=== PATIENT | female | born 1980 | race Hispanic/Latino ===

== ENCOUNTER → 2016-11-29 | Outpatient (CLI) | payer OTHER ==
[~2016-11-29] MED LIST: ISOVUE-370 76% 100ML VIAL (Q9967) As Ordered ONE
--- NOTE | 2016-11-29 14:23 | REP ---
HYSTEROSALPINGOGRAM: HISTORY: Infertility. 1 minute 36 seconds of fluoroscopy is utilized. FINDINGS: Endometrial cavity was cannulated and contrast injected by the referring indirect fire infantryman. The endometrial and endocervical cavity are unremarkable. Isthmic segments of the fallopian tubes are filled bilaterally. The right ampullary segment was filled, and peritoneal spillage was documented on the right. The left fallopian tube was less than completely filled, and peritoneal spillage could not be documented from the left fallopian tube. IMPRESSION: We were not able to document spillage from the left fallopian tube. Patency is observed and documented on the right. No endometrial abnormality is appreciated. Signed by Gilberto De Jesus MD 11/29/2016 03:20 P
== END ==
LOC: M RADPRO 12:02
PROVIDERS: ATTEND Obstetrics & Gynecology
DX: N97.9 Female infertility, unspecified (principal)
CPT/HCPCS: 58340; 74740; Q9967

== ENCOUNTER → 2017-02-01 | Outpatient (CLI) | payer OTHER ==
--- NOTE | 2017-02-01 12:24 | REP ---
MR BRAIN WITH AND WITHOUT CONTRAST: HISTORY: Hyperprolactinemia. Contrast: ProHance 7 mL. There are no areas of abnormal signal intensity in the brain. There is no intraparenchymal hemorrhage, infarct, mass or midline shift. There is no abnormal enhancement. The ventricular system is normal in appearance. There is no extracerebral collection. The sella turcica is partially empty. The pituitary gland measures 4.6 mm in height. There is homogenous enhancement with contrast. The infundibulum is midline. The cavernous sinuses, optic chiasm and hypothalamus are normal in appearance. Mucosal thickening is present in the ethmoid and maxillary sinuses. IMPRESSION: There is no intracranial lesion. Signed by Ray Henderson MD 02/01/2017 12:24 P
== END ==
LOC: M RAD 10:55
PROVIDERS: ATTEND Obstetrics & Gynecology
DX: E22.1 Hyperprolactinemia (principal)
CPT/HCPCS: 70553; A9576

== ENCOUNTER → 2017-04-22 | Outpatient (CLI) | payer OTHER ==
--- NOTE | 2017-04-22 08:13 | REP ---
Pelvic ultrasound, endovaginal imaging for ovarian follicle evaluation: Right ovary: There are three follicles greater than 10 mm diameter, the largest maximally measuring 28 mm. Additionally there are multiple follicles in the eight to 9 mm range. The right ovary is mildly enlarged measuring 5.8-3.6 x 3.5 cm. The left ovary There are three follicles greater than 10 mm, the largest maximally measuring 14.2 mm. In addition there are multiple follicles in the 890 mm range. The left ovary is normal size measuring 3.5 x 2.5 x 1.4 cm. The uterus is anteverted and normal size measuring 7.9 x 3.6 x 4.3 cm. The endometrium is not thickened measuring 8.1 mm. The endometrium has a trilaminar appearance. Signed by Eric Wayne MD 04/22/2017 08:05 A
[2017-04-22 09:25] LABS: LUTEINIZING HORMONE 52.8 mIU/mL; PROGESTERONE 0.6 NG/ML
[2017-04-22 09:26] LABS: ESTRADIOL 1224.7 PG/ML
== END ==
LOC: M RAD 06:27
PROVIDERS: ATTEND Obstetrics & Gynecology Reproductive Endocrinology
DX: Z31.49 Encounter for other procreative investigation and testing (principal)

== ENCOUNTER → 2017-04-25 | Outpatient (CLI) | payer OTHER ==
[2017-04-25 09:43] LABS: PROGESTERONE 1.8 NG/ML
[2017-04-25 10:34] LABS: ESTRADIOL 3366.2 PG/ML
--- NOTE | 2017-04-25 12:12 | REP ---
Clinical: Infertility. Technique: Transvaginal ultrasound examination. Technique: Normal anteverted uterus measures 7.6 x 3.4 x 4.5 cm. The endometrial complex measures 10.3 mm thickness with trace endocervical fluid noted. No pelvic fluid or adnexal mass lesion identified. Right ovary measures 6.5 x 4.6 x 5.7 cm and includes five follicles between 12 and 24 mm diameter along with approximately nine sub centimeter follicles. Left ovary measures 5.0 x 3.5 x 3.4 cm and includes 10 follicles between eight and 18 mm diameter along with approximately seven sub centimeter follicles. Impression: Bilateral follicles as noted above. Essentially normal appearance to the uterus. Signed by Lance Forrester MD 04/25/2017 07:52 A
== END ==
LOC: M RAD 06:26
PROVIDERS: ATTEND Obstetrics & Gynecology Reproductive Endocrinology
DX: Z31.49 Encounter for other procreative investigation and testing (principal)

== ENCOUNTER → 2017-05-05 | Outpatient (CLI) | payer OTHER ==
--- NOTE | 2017-05-05 07:42 | REP ---
Clinical: Infertility. Technique: Transvaginal ultrasound examination. Findings: Normal anteverted uterus measures 7.3 x 3.4 x 4.3 cm. Endometrial complex measures 5 mm thickness. No pelvic fluid or mass lesion. Right ovary measures 5.2 x 4.5 x 5.5 cm approximately 10 follicles between 12 and 21 mm maximal diameter and innumerable sub centimeter follicles. Left ovary measures 3.6 x 3.2 x 4.5 cm with four follicles between 12 and 17 mm and innumerable sub centimeter follicles. Impression: Follicular study as described above. Signed by Lance Forrester MD 05/05/2017 07:33 A
[2017-05-05 08:02] LABS: HCG, SERUM QUANTITATIVE < 1.0 MIU/ML
[2017-05-05 10:03] LABS: ESTRADIOL 45.5 PG/ML; LUTEINIZING HORMONE 0.9 mIU/mL; PROGESTERONE 0.3 NG/ML
== END ==
LOC: M RAD 06:30
PROVIDERS: ATTEND Obstetrics & Gynecology Reproductive Endocrinology
DX: N97.9 Female infertility, unspecified (principal)

== ENCOUNTER → 2017-05-13 | Outpatient (CLI) | payer OTHER ==
--- NOTE | 2017-05-13 09:45 | REP ---
TRANSVAGINAL PELVIC ULTRASOUND, FOLLICLE STUDY: Real-time sonographic evaluation of the pelvis performed utilizing transvaginal technique. The uterus measures 8.6 x 3.3 x 4.4 cm. Endometrial stripe measures 9 mm. There is trace endometrial/endocervical fluid. Right ovary measures 4.8 x 3.6 x 3.7 cm. Five dominant follicles are seen greater than 1 cm in diameter. The largest measures 14 x 15 mm. About six other subcentimeter follicles are seen in the right ovary. Left ovary measures 2.3 x 1.9 x 3.3 cm. The largest follicle is 12 x 8 mm. Multiple other subcentimeter follicles are seen in the left ovary, approximately 24 are counted. Signed by Eric Scott MD 05/13/2017 05:21 P
[2017-05-13 09:53] LABS: ESTRADIOL 577.6 PG/ML; LUTEINIZING HORMONE 3.9 mIU/mL; PROGESTERONE < 0.2 NG/ML
== END ==
LOC: M LAB 07:11 → M RAD 07:11
PROVIDERS: ATTEND Obstetrics & Gynecology Reproductive Endocrinology
DX: E28.9 Ovarian dysfunction, unspecified (principal)

== ENCOUNTER → 2017-05-24 | Outpatient (CLI) | payer OTHER ==
[2017-05-24 10:12] LABS: ESTRADIOL 948.5 PG/ML; PROGESTERONE 34.6 NG/ML
== END ==
LOC: M LAB 07:26
PROVIDERS: ATTEND Obstetrics & Gynecology Reproductive Endocrinology
DX: N97.9 Female infertility, unspecified (principal)

== ENCOUNTER → 2017-05-27 | Outpatient (CLI) | payer OTHER ==
[2017-05-27 08:23] LABS: PROGESTERONE 30.9 NG/ML
== END ==
LOC: M LAB 06:13
PROVIDERS: ATTEND Obstetrics & Gynecology Reproductive Endocrinology
DX: N97.9 Female infertility, unspecified (principal)

== ENCOUNTER → 2017-05-30 | Outpatient (CLI) | payer OTHER ==
[2017-05-30 10:03] LABS: PROGESTERONE 33.4 NG/ML
[2017-05-30 10:06] LABS: ESTRADIOL 951.4 PG/ML
== END ==
LOC: M LAB 06:20
PROVIDERS: ATTEND Obstetrics & Gynecology Reproductive Endocrinology
DX: Z32.01 Encounter for pregnancy test, result positive (principal)

== ENCOUNTER → 2017-07-15 | Outpatient (CLI) | payer OTHER | LOC: M LAB 08:03 | PROVIDERS: ATTEND Obstetrics & Gynecology Reproductive Endocrinology | DX: O02.1 Missed abortion (principal) ==

== ENCOUNTER → 2017-08-18 | Outpatient (CLI) | payer OTHER ==
[2017-08-18 16:17] LABS: ESTRADIOL 64.6 PG/ML; FOLLICLE STIMULATING HORMONE 5.4 mIU/mL; LUTEINIZING HORMONE 9.2 mIU/mL; PROGESTERONE 1.6 NG/ML
--- NOTE | 2017-08-18 16:17 | REP ---
TRANSVAGINAL PELVIC ULTRASOUND FOLLICLE STUDY: Real-time sonographic evaluation of the pelvis performed using transvaginal technique. Uterus measures 7.8 x 3.6 x 4.6 cm. A nabothian cyst is seen in the region of the cervix. There is trace fluid in the cervical canal. Endometrial stripe measures 4 mm. Right ovary measures 4.2 x 2.5 x 3.1 cm. There is a dominant follicle 17 x 18 mm. 10 other subcentimeter follicles are seen. A complex cystic structure in the right ovary measures 1.7 x 1.9 x 1.9 cm. Left ovary measures 4.0 x 2.5 x 2.8 cm. There are two dominant follicles measuring 13 x 8 mm and 14 x 17 mm. Multiple other subcentimeter follicles are seen in the left ovary. Signed by Eric Scott MD 08/18/2017 05:37 P
== END ==
LOC: M LAB 14:40
PROVIDERS: ATTEND Obstetrics & Gynecology Reproductive Endocrinology
DX: N97.9 Female infertility, unspecified (principal)

== ENCOUNTER → 2017-09-12 | Outpatient (CLI) | payer OTHER ==
[2017-09-12 10:08] LABS: PROGESTERONE 31.4 NG/ML
== END ==
LOC: M LAB 08:35
PROVIDERS: ATTEND Obstetrics & Gynecology Reproductive Endocrinology
DX: N97.9 Female infertility, unspecified (principal)

== ENCOUNTER → 2017-09-14 | Outpatient (CLI) | payer OTHER ==
[2017-09-14 09:30] LABS: ESTRADIOL 298.4 PG/ML; PROGESTERONE 28.9 NG/ML
== END ==
LOC: M LAB 08:02
PROVIDERS: ATTEND Obstetrics & Gynecology Reproductive Endocrinology
DX: Z32.01 Encounter for pregnancy test, result positive (principal)

== ENCOUNTER → 2017-09-16 | Outpatient (CLI) | payer OTHER ==
[2017-09-16 09:52] LABS: PROGESTERONE 23.6 NG/ML
== END ==
LOC: M LAB 08:39
PROVIDERS: ATTEND Obstetrics & Gynecology Reproductive Endocrinology
DX: Z32.01 Encounter for pregnancy test, result positive (principal)

== ENCOUNTER → 2017-09-26 | Outpatient (CLI) | payer OTHER ==
[2017-09-26 12:41] LABS: PROGESTERONE 26.5 NG/ML
== END ==
LOC: M LAB 07:00
PROVIDERS: ATTEND Obstetrics & Gynecology Reproductive Endocrinology
DX: O09.00 Supervision of pregnancy with history of infertility, unspecified trimester (principal)

== ENCOUNTER → 2017-09-26 | Outpatient (CLI) | payer OTHER ==
--- NOTE | 2017-09-26 17:52 | REP ---
Obstetric sonography: First trimester study. ultrasound. Status post renal transplant September 01. Findings: Transabdominal and transvaginal scanning are performed. There are two small sac-like structures in the uterine fundal endometrium. Neither of these demonstrates a yolk sac or an observable embryonic pole. By mean sac size diameter is, these would correspond with a 1-glwb-4-day and 2-mwjt-1-day gestational age estimate. No free fluid or extrauterine abnormalities observed. In the absence of pole, viability cannot be directly confirmed. Right ovary dimensions are 2.8 x 1.6 x 2.0 cm left ovary measures 3.0 x 2.0 x 1.5 cm. Uterine dimensions are 8.0 x 4.4 x 5.0 cm. Impression: Two gestational sac like structures are seen in the uterine endometrium, 2-ccls-5-day and 5 weeks 3-day estimates based on mean sac size diameter. No embryonic pole or yolk sac is seen in either. Otherwise unremarkable. Signed by Gilberto De Jesus MD 09/26/2017 08:31 P
== END ==
LOC: M RAD 16:01
PROVIDERS: ATTEND Obstetrics & Gynecology Reproductive Endocrinology
DX: O09.01 Supervision of pregnancy with history of infertility, first trimester (principal)

== ENCOUNTER → 2017-10-03 | Outpatient (CLI) | payer OTHER ==
--- NOTE | 2017-10-03 08:49 | REP ---
FIRST TRIMESTER OB ULTRASOUND WITH ENDOVAGINAL PROBE OB ULTRASOUND: 10/03/2017. Clinical history: First trimester . Two apparent gestational sacs on the previous study. Transabdominal and endovaginal probes show uterus anteverted. It measures 8.3 x 3.4 x 4.8 cm. There are two gestational sacs with sac A 11.5 mm mean sac diameter corresponding to 6 weeks and sac B 11.4 mm mean diameter with the sac at 5 weeks 6 days. Yolk sac is seen on each side. There is no pole at this time. There is a small subchorionic bleed adjacent to sac B and lateral to it at 9.9 x 1.7 x 2.5 mm. Sac A is towards the right, sac B is toward the left side of the uterus on the transverse images. Right ovary 2.5 x 2.2 x 2.1 cm and the left 2.8 x 1.8 x 2 cm. There is no adnexal mass or pelvic free fluid. Impression: 1. Twin OB gestation with sac A on the maternal right, sac B on the maternal left. 6 week size for mean sac diameter, sac A 5 week 6 days size, for sac B with 11.4 mm mean sac diameter. Neither sac has a pole. There is a tiny subchorionic hemorrhage adjacent to sac B at its lateral margin 9.9 x 2.5 x 1.7 mm. This may represent early IUP with pole not yet able to be seen versus missed spontaneous . Clinical, laboratory and ultrasound follow-up likely needed. Signed by Dion Mckeon MD 10/04/2017 05:49 P
[2017-10-03 10:40] LABS: ESTRADIOL 167.5 PG/ML; PROGESTERONE 6.5 NG/ML
== END ==
LOC: M RAD 07:33
PROVIDERS: ATTEND Obstetrics & Gynecology Reproductive Endocrinology
DX: Z36.2 Encounter for other antenatal screening follow-up (principal)

== ENCOUNTER → 2017-10-17 | Outpatient (CLI) | payer OTHER | LOC: M LAB 09:04 | PROVIDERS: ATTEND Obstetrics & Gynecology Reproductive Endocrinology | DX: Z31.41 Encounter for fertility testing (principal) ==

== ENCOUNTER → 2017-10-27 | Outpatient (CLI) | payer OTHER ==
[2017-10-27 09:03] LABS: HCG, SERUM QUANTITATIVE 8 MIU/ML
== END ==
LOC: M LAB 08:13
DX: O02.1 Missed abortion (principal)

== ENCOUNTER → 2017-11-02 | Outpatient (CLI) | payer OTHER ==
[2017-11-02 14:59] LABS: HCG, SERUM QUANTITATIVE 3 MIU/ML
== END ==
LOC: M LAB 13:57
DX: O02.1 Missed abortion (principal)
CPT/HCPCS: 84702

== ENCOUNTER → 2017-11-23 | Outpatient (CLI) | payer OTHER ==
[2017-11-23 08:42] LABS: HCG, SERUM QUANTITATIVE < 1.0 MIU/ML
[2017-11-23 10:47] LABS: PROGESTERONE 0.2 NG/ML
[2017-11-23 10:47] LABS: LUTEINIZING HORMONE 2.1 mIU/mL
[2017-11-23 12:33] LABS: ESTRADIOL 26.7 PG/ML
[2017-11-23 12:34] LABS: FOLLICLE STIMULATING HORMONE 6.5 mIU/mL
== END ==
LOC: M RAD 08:00
DX: N97.9 Female infertility, unspecified (principal); N88.8 Other specified noninflammatory disorders of cervix uteri
CPT/HCPCS: 76830

== ENCOUNTER → 2017-11-30 | Outpatient (CLI) | payer OTHER ==
[2017-11-30 11:35] LABS: PROGESTERONE < 0.2 NG/ML
[2017-11-30 11:36] LABS: ESTRADIOL 337.7 PG/ML; LUTEINIZING HORMONE 5.4 mIU/mL
== END ==
LOC: M RAD 10:39
DX: N88.8 Other specified noninflammatory disorders of cervix uteri (principal); N97.9 Female infertility, unspecified
CPT/HCPCS: 76830

== ENCOUNTER → 2017-12-12 | Outpatient (CLI) | payer OTHER ==
[2017-12-12 09:38] LABS: PROGESTERONE 57.6 NG/ML
[2017-12-12 09:39] LABS: ESTRADIOL 621.6 PG/ML
== END ==
LOC: M LAB 08:16
DX: N97.9 Female infertility, unspecified (principal)

== ENCOUNTER → 2017-12-16 | Outpatient (CLI) | payer OTHER ==
[2017-12-16 08:28] LABS: HCG, SERUM QUANTITATIVE 161 MIU/ML
[2017-12-16 09:27] LABS: PROGESTERONE 47.2 NG/ML
== END ==
LOC: M LAB 07:29
DX: N97.9 Female infertility, unspecified (principal)
CPT/HCPCS: 84702

== ENCOUNTER → 2017-12-19 | Outpatient (CLI) | payer OTHER ==
[2017-12-19 07:58] LABS: HCG, SERUM QUANTITATIVE 576 MIU/ML
[2017-12-19 11:06] LABS: ESTRADIOL 1214.2 PG/ML
[2017-12-19 11:25] LABS: PROGESTERONE 56.7 NG/ML
== END ==
LOC: M LAB 06:54
DX: Z32.01 Encounter for pregnancy test, result positive (principal)

== ENCOUNTER → 2017-12-26 | Outpatient (CLI) | payer OTHER ==
[2017-12-26 08:52] LABS: HCG, SERUM QUANTITATIVE 6223 MIU/ML
[2017-12-26 09:32] LABS: ESTRADIOL 251.9 PG/ML
== END ==
LOC: M LAB 07:46
DX: Z32.01 Encounter for pregnancy test, result positive (principal); Z3A.01 Less than 8 weeks gestation of pregnancy
CPT/HCPCS: 76801

== ENCOUNTER → 2018-01-02 | Outpatient (CLI) | payer OTHER ==
[2018-01-02 09:22] LABS: HCG, SERUM QUANTITATIVE 27384 MIU/ML
[2018-01-02 11:40] LABS: ESTRADIOL 772.4 PG/ML
[2018-01-02 11:40] LABS: PROGESTERONE 56.3 NG/ML
== END ==
LOC: M LAB 08:38
DX: Z32.01 Encounter for pregnancy test, result positive (principal); Z3A.01 Less than 8 weeks gestation of pregnancy
CPT/HCPCS: 76801

== ENCOUNTER → 2018-01-09 | Outpatient (CLI) | payer OTHER ==
[2018-01-09 08:58] LABS: HCG, SERUM QUANTITATIVE 54949 MIU/ML
[2018-01-09 10:35] LABS: PROGESTERONE 58.7 NG/ML
[2018-01-09 10:36] LABS: ESTRADIOL 1027.2 PG/ML
== END ==
LOC: M RAD 08:15
DX: Z32.01 Encounter for pregnancy test, result positive (principal)

== ENCOUNTER → 2018-01-18 | Outpatient (CLI) | payer OTHER ==
[2018-01-18 08:46] LABS: HCG, SERUM QUANTITATIVE 91315 MIU/ML
[2018-01-18 11:47] LABS: ESTRADIOL 1192.5 PG/ML
== END ==
LOC: M LAB 07:36
DX: O09.00 Supervision of pregnancy with history of infertility, unspecified trimester (principal); Z3A.08 8 weeks gestation of pregnancy
CPT/HCPCS: 76801